=== PATIENT | female | born 1965 | race Caucasian/White ===

== ENCOUNTER 2017-10-23 11:30 | Emergency (ER) | payer OTHER ==
[~2017-10-23] VITALS: Ht 182.9 cm; Wt 95.3 kg
[~2017-10-23 11:30] MED LIST: AMLO10TA2 PO; BUPR150T10 PO; ESTR0.623 PO; HYDR12.55 PO; LEVO137T2 PO; METO25TA6 PO; MIRT15TA7 PO; OMEP20CA10 PO
--- NOTE | 2017-10-23 12:50 | NUR ---
DAO MAE ON THE PHONE WITH DR CURTIS
[2017-10-23] MEDS ORDERED: HYDROCODONE/APAP 5/325MG 1 EACH TABLET PO ONE (13:00)
[2017-10-23] MEDS ORDERED: HYDROCODONE/APAP 5/325MG 1 EACH TABLET ONE (13:07)
--- NOTE | 2017-10-23 13:08 | NUR ---
Patient discharged to home in stable condition. Written and verbal after care instructions given. Patient verbalizes understanding of instruction. DC HOME WITH HER SISTER TO DRIVE HER HOME
[2017-10-23 13:11] VITALS: BP 136/97
== END 2017-10-23 13:17 | disposition home or self-care (01) ==
LOC: ER 11:33
DX: T40.2X1A Poisoning by other opioids, accidental (unintentional), initial encounter (principal); T50.7X1A Poisoning by analeptics and opioid receptor antagonists, accidental (unintentional), initial encounter; I10 Essential (primary) hypertension; E28.39 Other primary ovarian failure; F17.200 Nicotine dependence, unspecified, uncomplicated; Z88.8 Allergy status to other drugs, medicaments and biological substances; Y92.89 Other specified places as the place of occurrence of the external cause
CPT/HCPCS: 99282; A4606; Z7610

== ENCOUNTER 2020-03-05 15:34 | Emergency (ER) | payer BC, OTHER ==
[~2020-03-05] VITALS: Ht 182.9 cm; Wt 98.9 kg
[~2020-03-05 15:34] MED LIST changes: -AMLO10TA2 PO; +AMLO10TA7 PO; -OMEP20CA10 PO; +OMEP20CA15 PO
--- NOTE | 2020-03-05 15:35 | NUR ---
BIB SELF C/O ABSCESS ON THE BUTTOCKS AREA FOR 2 DAYS. TO ER BED 16, HOOKED TO MONITOR, CHANGED TO HOSP GOWN, WARM BLANKET PROVIDED, PATIENT AAO X 4, BREATHING EVEN AND UNLABORED. AWAITING MD LI.
--- NOTE | 2020-03-05 15:48 | NUR ---
DR MCGILL AT BEDSIDE
[2020-03-05] MEDS ORDERED: LIDOCAINE HCL/MPF 1% 30 ML VIAL IJ ONE (15:58)
[2020-03-05] MEDS ORDERED: LIDOCAINE 1% INJ 50 ML MDV IJ ONE (16:00)
--- NOTE | 2020-03-05 17:09 | NUR ---
DR MCGILL DECIDED NOT TO CONTINUE WITH I&D
--- NOTE | 2020-03-05 17:43 | NUR ---
Patient discharged to home with daughter in stable condition. Written and verbal after care instructions given. Patient and daughter verbalizes understanding of instruction.
[2020-03-05 18:15] VITALS: BP 112/64
[2020-03-06] MEDS ORDERED: PROG100C15 PO (10:46)
[2020-03-06] MEDS ORDERED: ESZO3TAB27 PO (10:46)
[2020-03-06] MEDS ORDERED: SULF1TAB48 PO (10:49)
[2020-03-06] MEDS ORDERED: CEPH500C2 PO (10:49)
== END 2020-03-05 18:19 | disposition home or self-care (01) ==
LOC: ER 15:39
DX: L02.215 Cutaneous abscess of perineum (principal); I10 Essential (primary) hypertension; K21.9 Gastro-esophageal reflux disease without esophagitis; E03.9 Hypothyroidism, unspecified; F17.200 Nicotine dependence, unspecified, uncomplicated; Z98.890 Other specified postprocedural states; Z88.8 Allergy status to other drugs, medicaments and biological substances; Z79.899 Other long term (current) drug therapy
CPT/HCPCS: 76857; 99284; A6403; A6407; J3490

== ENCOUNTER 2020-03-06 06:31 | Inpatient (IN) | payer BC ==
[~2020-03-06] VITALS: Ht 182.9 cm; Wt 101.6 kg
--- NOTE | 2020-03-06 06:35 | NUR ---
PT CAME TO THE ED C/O GENERALIZED ABDOMINAL PAIN +N/V AND L SIDED DULL CHEST PAIN SINCE 99. PT AAOX4, VSS, RESPIRATIONS EVEN AND UNLABORED ON RA W/ AND NOTED. PT CONNECTED TO THE LOGISTICS SYSTEM ENGINEER AND POX.
[2020-03-06] MEDS ORDERED: ONDANSETRON HCL/PF 4 MG/2 ML VIAL ONE ×2 (06:50→09:14)
[2020-03-06] MEDS ORDERED: MORPHINE SULFATE INJ 4 MG/ML DISP.SYRIN ONE (06:50)
[2020-03-06] MEDS ORDERED: ONDANSETRON HCL/PF 4 MG/2 ML VIAL IVP ONE (07:00)
[2020-03-06] MEDS ORDERED: MORPHINE SULFATE INJ 2 MG/ML DISP.SYRIN IV ONE (07:00)
[2020-03-06] MEDS ORDERED: IV NS 0.9% 500 ML BAG IV ONE (07:00)
--- NOTE | 2020-03-06 07:06 | NUR ---
BLOOD COLLECTED AND SENT TO LAB
--- NOTE | 2020-03-06 07:06 | NUR ---
URINE COLLECTED AND SENT TO LAB
--- NOTE | 2020-03-06 07:16 | NUR ---
Assumed care report given by Gaby ANGELES
[2020-03-06 07:23] LABS: APPEARANCE,URINE SL CLOUDY (CLEAR); BILIRUBIN,URINE NEGATIVE (NEGATIVE); BLOOD, URINE TRACE-INTA Ery/uL (NEGATIVE); COLOR,URINE YELLOW (YELLOW); KETONES,URINE 15 (NEGATIVE); LEUKOCYTE ESTERASE ,URINE NEGATIVE (NEGATIVE); NITRITE, URINE NEGATIVE (NEGATIVE); PROTEIN,URINE NEGATIVE (NEGATIVE); UGLUCOSE NEGATIVE (NEGATIVE); UROBILINOGEN,URINE 0.2 EU/dL (0.2)
[2020-03-06 07:25] LABS: BASOPHILS % (AUTO) 0.2 % (0.0-2.0); HEMATOCRIT 41 % (33-45); HEMOGLOBIN 13.8 g/dL (11.5-14.8); LYMPHOCYTES # (AUTO) 1.4 /CMM (0.8-4.8); LYMPHOCYTES % (AUTO) 15.4 % (20.0-44.0); MEAN CORPUSCULAR HGB CONC 34 g/dl (31.0-36.0); MEAN CORPUSCULAR VOLUME 95 fL (82-100); MONOCYTES # (AUTO) 0.5 /CMM (0.1-1.30); MONOCYTES % (AUTO) 5.6 % (2.0-12.0); NEUTROPHILS # (AUTO) 7.3 /CMM (1.8-8.9); NEUTROPHILS % (AUTO) 77.8 % (43.0-81.0); PLATELET COUNT (AUTO) 194 /CMM (150-450); WHITE BLOOD COUNT (AUTO) 9.4 K/uL (4.3-11.0)
[2020-03-06 07:34] LABS: CALCIUM, SERUM 9.4 mg/dL (8.5-10.1); CARBON DIOXIDE 20 mmol/L (21-32); CHLORIDE 98 mmol/L (98-107); GLUCOSE 113 mg/dL (74-106); POTASSIUM 3.6 mmol/L (3.5-5.1); SODIUM SERUM 133 mmol/L (136-145); UREA NITROGEN, BLOOD 15 mg/dL (7-18)
[2020-03-06 07:42] LABS: ALANINE AMINOTRANSFERASE 46 U/L (12-78); ALBUMIN 3.7 g/dL (3.4-5.0); ALKALINE PHOSPHATASE 84 U/L (46-116); ASPARTATE AMINOTRANSFERASE 39 U/L (15-37); BILIRUBIN,DIRECT 0.1 mg/dL (0.0-0.2); BILIRUBIN,TOTAL 0.7 mg/dL (0.2-1.0); LIPASE 787 U/L (73-393); TOTAL PROTEIN, SERUM 7.6 g/dL (6.4-8.2)
[2020-03-06 08:03] LABS: BACTERIA,URINE Moderate /HPF (None Seen); SQUAMOUS EPITHELIAL CELL,UR Few /HPF (None Seen)
--- NOTE | 2020-03-06 08:03 | NUR ---
PT IS WHEELED TO CT SCAN VIA [facility].
[2020-03-06] MEDS ORDERED: ONDANSETRON HCL/PF - ER 4 MG/2 ML VIAL IV ONE (08:30)
[2020-03-06] MEDS ORDERED: HYDROMORPHONE INJ 0.5 MG/0.5 ML SYRINGE IV ONE (08:30)
--- NOTE | 2020-03-06 08:30 | NUR ---
Patient complain of pain MD aware with order
[2020-03-06] MEDS ORDERED: HYDROMORPHONE 1 MG/1 ML DISP.SYRIN ONE (08:34)
--- NOTE | 2020-03-06 09:21 | NUR ---
Patient awake alert nobn distress vitals taken and filed noted non nausea and she states pain is better awaiting for CT result .
--- NOTE | 2020-03-06 10:14 | NUR ---
Left hand Heplock removed cath intact noted no edema no pain dressing place
--- NOTE | 2020-03-06 10:41 | NUR ---
PAGED [facility].
[2020-03-06] MEDS ORDERED: ESZO3TAB27 PO (10:46)
[2020-03-06] MEDS ORDERED: PROG100C15 PO (10:46)
[2020-03-06] MEDS ORDERED: CEPH500C2 PO (10:49)
[2020-03-06] MEDS ORDERED: SULF1TAB48 PO (10:49)
--- NOTE | 2020-03-06 10:52 | NUR ---
Patient to room 9 noted no nausea and vomit obtained LAC 20 G
--- NOTE | 2020-03-06 11:10 | NUR ---
Leroy brownlee in [facility] - 03/06/20 at 1122 by JUNI CALLED HOUSE [facility]RIAN FOR MED SURG BED.
--- NOTE | 2020-03-06 11:22 | NUR ---
CALLED HOUSE SUP FOR TELE BED AND R/O COVID.
--- NOTE | 2020-03-06 11:25 | NUR ---
VICE PRESIDENT [employer]ARD AT BEDSIDE
--- NOTE | 2020-03-06 11:33 | NUR ---
NURSING SUP GAVE TELE BED 106.
--- NOTE | 2020-03-06 11:36 | NUR ---
COVID SWAB OBTAINED AND SEND TO LAB
--- NOTE | 2020-03-06 11:51 | NUR ---
Given report to Anamaria ANGELES 106
[2020-03-06] MEDS ORDERED: IV NS 0.9% 1,000 ML IV PRN (12:00)
[2020-03-06] MEDS ORDERED: MAGNESIUM HYDROXIDE 30 ML UDC PO PRN (12:00)
[2020-03-06] MEDS ORDERED: MAG HYDROX/AL HYDROX/SIMETH 30 ML UDC PO PRN (12:00)
[2020-03-06] MEDS ORDERED: ONDANSETRON HCL/PF 4 MG/2 ML VIAL IVP PRN (12:00)
[2020-03-06] MEDS ORDERED: Z GUARD REMEDY 2 OZ OINT TP PRN (12:00)
[2020-03-06 12:45] VITALS: BP 124/72
--- NOTE | 2020-03-06 13:00 | NUR ---
RN OPENING NOTES ADMITTED A 55 Y/O F, ACCOMPANIED BY ER STAFF A/OX4 ABLE TO MAKE NEEDS KNOWN.NO S/S DISTRESS NOTED AT THIS TIME. PT IS ORIENTED TO UNIT, ROOM,AND STAFF. PT IS ON RA SATING AT 98%, BREATHING EVEN AND UNLABORED. VS TAKEN AND RECORDED. PHYSICAL ASSESSMENT WAS DONE .PHOTO OF SKIN ISSUE FILED ON CHART. PT IV ACSESS ON LAC, INTACT AND PATENT. SAFETY MEASURES IN PLACE BED AT LOWEST POSITION, LOCKED, CALL LIGHT IN REACH, SIDE RAILS UPX2. WILL CONTINUE TO MONITOR
[2020-03-06 13:10] LABS: FERRITIN 133 ng/mL (8-388)
[2020-03-06 13:21] LABS: C-REACTIVE PROTEIN < 0.2 mg/dL (0.0-0.9)
[2020-03-06 14:00] VITALS: BP_SYST 109; BP_SYST 121; BP_DIAS 70; BP_DIAS 79
[2020-03-06] MEDS: ENOXAPARIN SODIUM 40 MG/0.4 ML DISP.SYRIN SQ SCH (14:07)
[2020-03-06] MEDS: CEPHALEXIN MONOHYDRATE 500 MG CAPSULE PO SCH ×3 (14:08→20:09)
[2020-03-06] MEDS: HYDROMORPHONE INJ 2 MG/ML DISP.SYRIN IV PRN ×4 (14:08→23:49)
[2020-03-06] MEDS: NICOTINE PATCH (14MG) 14 MG PATCH.TD24 TD SCH (14:08)
[2020-03-06] MEDS: IV NS 0.9% 1,000 ML IV PRN ×2 (14:09→20:21)
[2020-03-06 16:00] VITALS: BP_SYST 109; BP_SYST 120; BP_DIAS 64; BP_DIAS 79
[2020-03-06] MEDS: SULFAMETH/TRIMETH 800/160 MG 1 UDTAB TABLET PO SCH (17:02)
[2020-03-06] MEDS ORDERED: PROGESTERONE MICRONIZED 100 MG PO SCH (18:00)
--- NOTE | 2020-03-06 18:28 | NUR ---
RN CLOSING NOTES PT IS LAYING DOWN COMFORTABLY IN THE BED. THERE IS NO S/S OF ACUTE DISTRESS. UNLABORED BREATHING, VSS., IV ON RIGHT HAND, 22 G NS RUNNING AT 125 ML/HR, DRESSING INTACT AND DRY.SAFETY MEASURES IN PLACE BED AT LOWEST POSITION, BED LOCKED,CALL LIGHT WITHIN REACH, SIDE RAILS UPX2. WILL ENDORSE TO INCOMING SHIFT FOR CONTINUITY OF CARE
--- NOTE | 2020-03-06 19:20 | NUR ---
RIDE MECHANIC OPENING NOTES: RECEIVED PT ON ROOM AIR AND IS TOLERATING WELL. PT A/0X4. NO SOB NOTED. NO S/S OF DISTRESS. PT HAS IV ON R HAND #22G AND IS BEING INFUSED WITH IV NS AT 125ML/HR. PT NPO EXCEPT AT THIS TIME. PT ON TELE MONITOR AND READING SHOWS SR AT THIS TIME. BED KEPT IN LOW, LOCKED POSITION, AND SIDE RAILS X 2UP. CALL LIGHT WITHIN REACH. WILL CONTINUE TO MONITOR PT.
[2020-03-06 20:00] VITALS: BP 116/69
--- NOTE | 2020-03-06 20:33 | NUR ---
TELEPRINTER INSTALLER NOTES: PT GIVEN DILAUDID 1MG VIA IV FOR 8/10 LOWER ABDOMEN PAIN AND RIGHT ARM ACHY PAIN. WILL CONTINUE TO MONITOR.
--- NOTE | 2020-03-06 22:57 | NUR ---
CLEANER CARPET AND UPHOLSTERY NOTES: ENDORSED TO RNTHOMAS, FOR SELENE. PT IN STABLE CONDITION AND WATCHING TELEVISION IN HER ROOM. REMAINS NPO AND WITH IV ON R HAND IV FLUIDS NS AT 125ML/HR.
[2020-03-07] VITALS: BP 122/80
[2020-03-07] MEDS: HYDROMORPHONE INJ 2 MG/ML DISP.SYRIN IV PRN ×6 (01:53→11:59)
[2020-03-07 04:00] VITALS: BP 113/69
--- NOTE | 2020-03-07 04:45 | NUR ---
INDUSTRIAL FABRIC CUTTER NOTES PRN DILAUDED 1MG GIVEN IVP AT 0345, REASSESSED AT 0445, EFFECTIVE
--- NOTE | 2020-03-07 05:34 | NUR ---
ROCK LOADER NOTES PT AOX4 C/O PAIN IN ABD AREA W/BURNING, ACHING IN CHARACTER 06/23. DEMANDED Q2H AROUND THE CLOCK W/TIMER SCHEDULED ON HER PHONE FOR Q2H. OTHER PAIN RELIVING MEASURES OFFERED, PT DENIED. PRN DILAUDED GIVEN REQUESTED Q2H DURING THE SHIFT
[2020-03-07] MEDS: IV NS 0.9% 1,000 ML IV PRN (05:57)
[2020-03-07 07:13] LABS: CALCIUM, SERUM 8.8 mg/dL (8.5-10.1); CREATININE 0.9 mg/dL (0.6-1.3); MAGNESIUM 1.7 mg/dL (1.8-2.4); PHOSPHORUS 2.8 mg/dL (2.5-4.9); POTASSIUM 4.1 mmol/L (3.5-5.1)
[2020-03-07 07:14] LABS: BASOPHILS % (AUTO) 0.1 % (0.0-2.0); EOSINOPHILS % (AUTO) 1.2 % (0.0-6.0); HEMATOCRIT 38 % (33-45); HEMOGLOBIN 12.7 g/dL (11.5-14.8); LYMPHOCYTES # (AUTO) 0.7 /CMM (0.8-4.8); LYMPHOCYTES % (AUTO) 7.3 % (20.0-44.0); MEAN CORPUSCULAR HGB CONC 33 g/dl (31.0-36.0); MEAN CORPUSCULAR VOLUME 96 fL (82-100); MONOCYTES # (AUTO) 0.4 /CMM (0.1-1.30); MONOCYTES % (AUTO) 4.8 % (2.0-12.0); NEUTROPHILS # (AUTO) 7.9 /CMM (1.8-8.9); NEUTROPHILS % (AUTO) 86.6 % (43.0-81.0); PLATELET COUNT (AUTO) 171 /CMM (150-450); RED BLOOD CELL COUNT(AUTO) 3.94 MIL/uL (4.0-5.2); WHITE BLOOD COUNT (AUTO) 9.2 K/uL (4.3-11.0)
--- NOTE | 2020-03-07 07:15 | NUR ---
HOME CHILD CARE PROVIDER OPENING NOTES: RECEIVED PATIENT ON BED. PATIENT ON ROOM AIR AND IS TOLERATING WELL. PATIENT A/0X4. NO SOB NOTED. NO S/S OF DISTRESS. PATIENT HAS IV ON RIGHT HAND #22G AND IS BEING INFUSED WITH IV NS AT 125ML/HR. PATIENT IS ON NPO EXCEPT MEDS. PATIENT ON TELE MONITOR AND READING SINUS RHYTHM 76. BED KEPT IN LOW, LOCKED POSITION, AND SIDE RAILS X 2UP. CALL LIGHT WITHIN REACH. WILL CONTINUE TO MONITOR.
[2020-03-07 07:21] LABS: THYROID STIMULATING HORMONE 0.489 uIU/mL (0.358-3.74)
[2020-03-07] MEDS ORDERED: LEVOTHYROXINE SODIUM 137 MCG TABLET PO SCH (07:30)
[2020-03-07] MEDS ORDERED: OMEPRAZOLE 20 MG CAPSULE.DR PO SCH (07:30)
[2020-03-07] MEDS ORDERED: PANTOPRAZOLE 40 MG TABLET.DR PO SCH (07:30)
[2020-03-07 08:00] VITALS: BP 124/69
--- NOTE | 2020-03-07 08:00 | NUR ---
tele retail service lead merchandiser: initial assessment received pt in bed awake, a/ox4. ambulatory. no c/o pain at this time. remains npo. continue on iv fluids. will continue to monitor.
[2020-03-07 08:25] VITALS: BP 126/69
[2020-03-07] MEDS: CEPHALEXIN MONOHYDRATE 500 MG CAPSULE PO SCH ×2 (08:25→12:35)
[2020-03-07] MEDS: SULFAMETH/TRIMETH 800/160 MG 1 UDTAB TABLET PO SCH (08:25)
[2020-03-07] MEDS: ENOXAPARIN SODIUM 40 MG/0.4 ML DISP.SYRIN SQ SCH (08:26)
[2020-03-07] MEDS: NICOTINE PATCH (14MG) 14 MG PATCH.TD24 TD SCH (08:26)
[2020-03-07] MEDS ORDERED: buPROPion SR 150 MG TABLET.ER PO SCH (09:00)
[2020-03-07] MEDS ORDERED: METOPROLOL TARTRATE 25 MG TABLET PO SCH (09:00)
[2020-03-07] MEDS ORDERED: AMLODIPINE BESYLATE 10 MG TABLET PO SCH (09:00)
[2020-03-07] MEDS: Magnesium 1GM/D5W 100ML PREMIX 100 ML IV SCH ×2 (10:22→11:44)
--- NOTE | 2020-03-07 10:45 | NUR ---
tele congressional assistant: notes lab called and informed me that pt covid result is negative. cn made aware. pt made aware.
--- NOTE | 2020-03-07 10:57 | NUR ---
tele maturity checker: notes received order to OK TO TRANSFER TO [facility] DUE TO COVID NEGATIVE per cn. order acknowledged. pt made aware.
[2020-03-07] MEDS ORDERED: ZOLPIDEM TARTRATE 5 MG TABLET PO PRN (11:00)
--- NOTE | 2020-03-07 12:30 | NUR ---
tele beef cattle farm worker: notes report given to perez samuel) for continuity of care.
--- NOTE | 2020-03-07 12:45 | NUR ---
tele services executive: notes tele removed. pt getting ready to move to room 304-2.
--- NOTE | 2020-03-07 12:50 | NUR ---
tele fleet assistant: notes moved pt to room 304 bed 2 with all belongings. pt doesn't like her room and wants a room change. primary nurse aware.
--- NOTE | 2020-03-07 13:00 | NUR ---
MS RN NOTES RECEIVED PATIENT FROM [facility], FROM [facility]. ORIENTED PATIENT TO UNIT, ROOM AND CALL LIGHT
--- NOTE | 2020-03-07 13:20 | NUR ---
MS RN NOTES PATIENT WANTS TO LEAVE AMA BECAUSE SHE IS UNHAPPY WITH HER ROOM AND WANTS A ROOM BY HERSELF. CHARGE NURSE SPOKE TO PATIENT THAT THERE IS NO AVAILABILITY AT THIS TIME, IF SHE IS WILLING TO WAIT WE CAN LOOK FOR AN AVAILABLE ROOM. PATIENT REFUSED TO STAY AND WILL LEAVE AMA , DARSHAN KEITH AWARE.
--- NOTE | 2020-03-07 13:33 | NUR ---
MS RN NOTES PATIENT LEFT AMA, AMA FORM SIGNED. ALL BELONGINGS ACCOUNTED FOR. PATIENT REFUSED DISCHARGE INSTRUCTIONS AND WILL FOLLOW UP WITH HER PCP. PATIENT AMBULATORY, DENIES ANY C/O PAIN NOR DISCOMFORT AT THIS TIME. PATIENT REFUSED TO RECEIVE DISCHARGE INSTRUCTIONS.
--- NOTE | 2020-03-07 13:33 | NUR ---
MS RN NOTES IV ACCESS REMOVED WITH CATHETER TIP INTACT WITH GAUZE DRESSING APPLIED.
== END 2020-03-07 13:30 | disposition left against medical advice (07) | DRG 439 ==
LOC: ER 06:37 → MEDSG1 11:37 → TELE1 12:26 → MED 03-07 12:33
PROVIDERS: ADMIT Nurse Practitioner Acute Care; ATTEND Nurse Practitioner Acute Care
DX: K85.20 Alcohol induced acute pancreatitis without necrosis or infection (principal); E87.1 Hypo-osmolality and hyponatremia; L02.215 Cutaneous abscess of perineum; I10 Essential (primary) hypertension; K76.0 Fatty (change of) liver, not elsewhere classified; E83.42 Hypomagnesemia; K72.90 Hepatic failure, unspecified without coma; E03.9 Hypothyroidism, unspecified; Z83.3 Family history of diabetes mellitus; Z80.7 Family history of other malignant neoplasms of lymphoid, hematopoietic and related tissues; Z79.890 Hormone replacement therapy; E28.39 Other primary ovarian failure; Z88.8 Allergy status to other drugs, medicaments and biological substances; Z79.899 Other long term (current) drug therapy; K57.30 Diverticulosis of large intestine without perforation or abscess without bleeding; F41.9 Anxiety disorder, unspecified; F32.9 Major depressive disorder, single episode, unspecified; F10.10 Alcohol abuse, uncomplicated; Y90.9 Presence of alcohol in blood, level not specified; Z72.0 Tobacco use; E86.1 Hypovolemia; N28.1 Cyst of kidney, acquired
CPT/HCPCS: 36415; 71045-TC; 80048-TC; 80061-TC; 80076-TC; 81000-TC; 82728-TC; 83615-TC; 83690-TC; 83735-TC; 84100-TC; 84443-TC; 84484-TC; 85025-TC; 86140-TC; 87081-TC; 87086-TC; G0378; J1170; J1650; J2270; J2405; J3475; J7030; J7040; U0003-CS

== ENCOUNTER 2020-03-11 05:26 | Emergency (ER) | payer BC ==
[~2020-03-11] VITALS: Ht 182.9 cm; Wt 90.7 kg
[~2020-03-11 05:26] MED LIST changes: +CEPH500C2 PO; -ESTR0.623 PO; +ESZO3TAB27 PO; -HYDR12.55 PO; -MIRT15TA7 PO; +PROG100C15 PO; +SULF1TAB48 PO
[2020-03-11] MEDS ORDERED: ONDANSETRON HCL/PF 4 MG/2 ML VIAL ONE (05:43)
[2020-03-11] MEDS: ONDANSETRON HCL/PF 4 MG/2 ML VIAL IVP ONE (06:00)
[2020-03-11] MEDS: IV NS 0.9% 1,000 ML BAG IV ONE (06:00)
--- NOTE | 2020-03-11 06:00 | NUR ---
PATIENT CAME TO ER BED 3 C/O ABDOMINAL PAIN 1x WEEK. PATIENT ALSO STATES THAT SHE HAS COUGH AND FEVER FOR 4x DAYS . PATIENT STATES THAT SHE HASN'T BEEN ABLE TO DRINK WATER AND HOLD IN ANY FOOD. AAOX4. NO SOB. BREATHING EVENLY AND UNLABORED ON ROOM AIR. CONNECTED TO MONITOR.
[2020-03-11 06:04] LABS: BASOPHILS # (AUTO) 0.1 /CMM (0.0-0.2); BASOPHILS % (AUTO) 0.8 % (0.0-2.0); EOSINOPHILS % (AUTO) 2.5 % (0.0-6.0); HEMATOCRIT 39 % (33-45); HEMOGLOBIN 13.3 g/dL (11.5-14.8); LYMPHOCYTES # (AUTO) 0.8 /CMM (0.8-4.8); LYMPHOCYTES % (AUTO) 8.5 % (20.0-44.0); MEAN CORPUSCULAR HGB CONC 34 g/dl (31.0-36.0); MEAN CORPUSCULAR VOLUME 95 fL (82-100); MONOCYTES # (AUTO) 1.1 /CMM (0.1-1.30); MONOCYTES % (AUTO) 11.5 % (2.0-12.0); NEUTROPHILS # (AUTO) 7.4 /CMM (1.8-8.9); NEUTROPHILS % (AUTO) 76.7 % (43.0-81.0); PLATELET COUNT (AUTO) 234 /CMM (150-450); RED BLOOD CELL COUNT(AUTO) 4.12 MIL/uL (4.0-5.2); WHITE BLOOD COUNT (AUTO) 9.7 K/uL (4.3-11.0)
[2020-03-11 06:20] LABS: ALANINE AMINOTRANSFERASE 351 U/L (12-78); ALBUMIN 2.8 g/dL (3.4-5.0); ALKALINE PHOSPHATASE 584 U/L (46-116); ASPARTATE AMINOTRANSFERASE 250 U/L (15-37); BILIRUBIN,DIRECT 4.1 mg/dL (0.0-0.2); BILIRUBIN,TOTAL 4.6 mg/dL (0.2-1.0); CALCIUM, SERUM 9.9 mg/dL (8.5-10.1); CARBON DIOXIDE 20 mmol/L (21-32); CHLORIDE 100 mmol/L (98-107); CREATININE 1.1 mg/dL (0.6-1.3); GLUCOSE 106 mg/dL (74-106); LIPASE 407 U/L (73-393); POTASSIUM 3.8 mmol/L (3.5-5.1); SODIUM SERUM 133 mmol/L (136-145); TOTAL PROTEIN, SERUM 7.3 g/dL (6.4-8.2); UREA NITROGEN, BLOOD 6 mg/dL (7-18)
--- NOTE | 2020-03-11 06:29 | NUR ---
XRAY AT BEDSIDE
[2020-03-11 07:18] VITALS: BP 108/71
[2020-03-11 08:26] LABS: APPEARANCE,URINE Slightly Cloudy (CLEAR); BILIRUBIN,URINE LARGE (NEGATIVE); BLOOD, URINE Trace-lysed Ery/uL (NEGATIVE); COLOR,URINE Dark (YELLOW); KETONES,URINE 80 (NEGATIVE); LEUKOCYTE ESTERASE ,URINE Negative (NEGATIVE); NITRITE, URINE Negative (NEGATIVE); PH,URINE 7.5 (5.0-8.0); PROTEIN,URINE 30 mg/dl (NEGATIVE); UGLUCOSE 100 MG/DL mg/dL (NEGATIVE)
[2020-03-11 08:38] LABS: BACTERIA,URINE Few /HPF (None Seen); SQUAMOUS EPITHELIAL CELL,UR Moderate /HPF (None Seen); WBC,URINE 0-2 /HPF (0-3)
== END 2020-03-11 07:18 | disposition home or self-care (01) ==
LOC: ER 05:26
DX: J20.9 Acute bronchitis, unspecified (principal); R10.13 Epigastric pain; R11.0 Nausea; I10 Essential (primary) hypertension; K21.9 Gastro-esophageal reflux disease without esophagitis; E03.9 Hypothyroidism, unspecified; Z98.890 Other specified postprocedural states; Z88.8 Allergy status to other drugs, medicaments and biological substances
CPT/HCPCS: 36415; 71045; 80048; 80076; 81001; 83690; 84484; 85025; 85730; 93005; 96361; 96374; 99285; J2405; J7030; 81000-TC